=== PATIENT | female | born 1990 | race Caucasian/White ===

== ENCOUNTER → 2021-06-11 14:11 | Outpatient (BNVA) | payer BC, SELFPAY | PROVIDERS: Visit Provider Nurse Practitioner Women's Health | DX: N92.6 Irregular menstruation, unspecified (principal) | CPT/HCPCS: 81025; 84702 ==

== ENCOUNTER → 2021-06-29 13:54 | Outpatient (BNVA) | payer BC, SELFPAY | PROVIDERS: Visit Provider Nurse Practitioner Women's Health | DX: Z34.01 Encounter for supervision of normal first pregnancy, first trimester | CPT/HCPCS: 80307; 84315; 85027; 86592; 86762; 86803; 86850; 86900; 87086; 87340; 87806 ==

== ENCOUNTER → 2021-07-26 09:12 | Outpatient (BNVA) | payer BC, SELFPAY | PROVIDERS: Visit Provider Obstetrics & Gynecology | DX: Z34.01 Encounter for supervision of normal first pregnancy, first trimester | CPT/HCPCS: 84315; 84443; 87491; 87591; 87661; 88175 ==

== ENCOUNTER → 2021-11-18 09:35 | Outpatient (BNVA) | payer BC, SELFPAY | PROVIDERS: Visit Provider Obstetrics & Gynecology | DX: Z34.90 Encounter for supervision of normal pregnancy, unspecified, unspecified trimester (principal) | CPT/HCPCS: 82950; 84315; 85025; 87086 ==

== ENCOUNTER 2021-11-25 17:40 | Outpatient (CLI) | payer BC, SELFPAY ==
[2021-11-25] VITALS (13 sets, daily range): BP systolic 107–120; BP diastolic 55–69; PULSE 71–93; RESP 12–18; TEMP 36.6; O2SAT 100
[2021-11-25] MEDS: ondansetron 2 mg/ML SDV 2 mL 4 MG IVP (18:10)
[2021-11-25] MEDS: dextrose 5%-lactated ringers 1,000 ML 999 ML IV ×2 (18:13→18:14)
[2021-11-25] MEDS: meclizine 25 mg tablet PO (20:35)
--- NOTE | 2021-11-25 21:19 | PC.NURSE ---
Patient requests to use bathroom at this time. Assisted patient out of bed and she states she feels like the room is spinning. Patient is unsteady on her feet and assisted by RN to wheelchair. Patient's vitals taken and all WNL. Patient taken to bathroom via wheelchair and assisted to toilet. Called ER at [phone] to advise patient would be discharged and sent to ER for further evaluation. Advised of care provided in OB department. ER states to leave IV in place and send to ER.
== END 2021-11-25 21:33 | disposition home or self-care (01) ==
LOC: OPOB 17:45 → OBGYN 17:47
PROVIDERS: Visit Provider Obstetrics & Gynecology
DX: O21.9 Vomiting of pregnancy, unspecified (principal); Z3A.00 Weeks of gestation of pregnancy not specified; R42 Dizziness and giddiness
CPT/HCPCS: 59025; 96374; 99211; J2405; J8597

== ENCOUNTER 2021-11-25 21:38 | Emergency (ER) | payer BC, SELFPAY ==
[2021-11-25 21:41] VITALS: BP 125/71; PULSE 90; RESP 16; TEMP 36.6; O2SAT 99; BMI 34.4
--- NOTE | 2021-11-25 22:01 | ED_ITS ---
HPI - Dizziness General: Chief Complaint: Dizziness Stated Complaint: D/V 29 weeks preg Time Seen by Provider: 11/25/21 21:43 Source: patient Mode of arrival: wheelchair Limitations: no limitations History of Present Illness: HPI Narrative: Patient is a 31-year-old female at 29 weeks who presents to ED today after she was sent here following an evaluation at OB for concerns of dizziness, nausea, vomiting. Patient states while at OB she received 2 L of dextrose/LR, Zofran, and Meclizine but was still symptomatic so recommended coming to the ED. Patient tells me dizziness began when she awoke this morning and is worse with movement of her head. She is not having any visual changes. No headache. No focal neurologic deficits. No previous history of vertigo. She states has been uncomplicated. No chronic medical problems. MD elicited complaint: dizziness Onset (ago): hour(s) Timing: awoke with symptoms Severity: moderate Description: room spinning History of similar symptoms: No Exacerbating factors: movement/ambulation and keeping eyes open Relieving factors: remaining still and keeping eyes closed Associated symptoms: Reports no associated symptoms, nausea and vomiting; Denies chest pain, chills, headache(s), malaise, palpitations or syncope Associated neuro symptoms: Reports no associated symptoms; Deny confusion or numbness in extremities Stroke scale total: 0 Review of Systems Const: Denies: fever(s), chills, body aches, fatigue or malaise Eyes: Denies: change in vision, blurry vision, photophobia, eye discomfort, floaters or seeing flashes Card: Denies: chest pain, palpitations, syncope or pre-syncope Resp: Denies: dyspnea GI: Reports: nausea and vomiting; Denies: abdominal pain, diarrhea or change in bowel habits : Denies: flank pain, dysuria, hematuria, vaginal bleeding or vaginal discharge Musc: Denies: neck pain, back pain, extremity pain or joint pain Skin/Breast: Denies: rash Neuro: Reports: vertigo; Denies: headache(s), numbness in extremities, weakness in extremities, sensory changes, lack of coordination, frequent falls, confusion, behavioral changes, Slurred speech present, difficulty communicating thoughts or seizure-like activity Psych: Denies: anxiety PFSH ED PFSH: Medical History Irregular menses Migraine with aura No pertinent past medical history neg dx- dm,thyroid,htn,dvt/pe PCP: none Surgical History [place] teeth removed 2016 Family History Mother Hypertension Father Hypertension Grandmother Stroke paternal Grandfather Colon cancer maternal- age of dx- 70's Denies family history of Ovarian cancer Diabetes Hyperlipidemia Breast cancer Uterine cancer Thyroid disease Physical Exam Const: COMMON NORMALS: no acute distress, average body habitus, patient oriented x3, no limitations, healthy appearing, alert and well nourished GENERAL APPEARANCE: cooperative ORIENTATION/CONSCIOUSNESS: Yes awake, Yes oriented to person, Yes oriented to place and Yes oriented to time HENMT: COMMON NORMALS: normocephalic, atraumatic, hearing grossly normal b ilaterally, external ears normal, EAC's normal, TM's normal bilaterally, Normal external nose present, Normal nasal mucous membranes and turbinates present, moist oral mucous membranes and oropharynx normal HEAD & SCALP: normal to inspection, normocephalic and atraumatic FACE & SINUS: normal facial exam NOSE: Normal external nose present and Normal nasal mucous membranes and turbinates present EXTERNAL EAR: Yes external ears normal EXTERNAL AUDITORY CANAL: EAC's normal TYMPANIC MEMBRANE: TM's normal bilaterally MOUTH: Normal oral and palatal mucosa present, lip normal and tongue normal THROAT: posterior oropharynx normal Eye: COMMON NORMALS: Equal, round and reactive pupils present and EOMs intact bilaterally GENERAL EYE: appearance normal, both eyes and all related structures and normal light reflex VISUAL ACUITY: Yes acuity normal VISUAL FRIAS: No peripheral vision loss and No central vision loss PUPIL: Yes Equal, round and reactive pupils present DIRECT OPHTHALMOSCOPY: Yes normal light reflex OTHER: horizontal nystagmus Neck/C-Spine: COMMON NORMALS: full ROM, no lymphadenopathy, supple, no meningeal signs, no JVD, Thyroid normal and No carotid bruits GENERAL: Yes normal visual inspection THYROID: Thyroid normal Resp: COMMON NORMALS: normal respiratory effort and clear to auscultation bilaterally AUSCULTATION: clear to auscultation bilaterally Cardio: COMMON NORMALS: no JVD, regular rate and regular rhythm RATE: regular rate RHYTHM: regular rhythm GI: COMMON NORMALS: non-tender INSPECTION: Yes gravid abdomen : COMMON NORMALS: Yes no CVA tenderness BLADDER/KIDNEY EXAM: Yes no CVA tenderness Back/Pelvis: COMMON NORMALS: no CVA tenderness Extremity: COMMON NORMALS: normal to inspection and full ROM GENERAL: Yes normal exam except as noted Neuro: JASPREET COMA SCALE: document GCS findings [place] coma scale eye opening: Spontaneous Jaspreet coma scale verbal response: Orientated Jaspreet coma scale motor response: Obey commands Jaspreet coma scale total score: 15 COMMON NORMALS: patient oriented x3, CN's II-XII intact bilaterally, moves all extremities, no focal motor deficits, no sensory deficits noted and gait normal SENSORIUM/ORIENTATION: Yes alert, Yes oriented to person, Yes oriented to place and Yes oriented to time MENINGEAL SIGNS: Yes no meningeal signs SP EECH: speech normal GAIT: Yes Normal gait present MOTOR EXAM: 5/5 motor strength present throughout Skin: COMMON NORMALS: no rashes or lesions noted GENERAL SKIN EXAM: no rashes or lesions noted Course Vital Signs: Vital signs: Vital Signs Temperature 97.8 F 11/25/21 21:41 Pulse Rate 70 11/26/21 00:35 Respiratory Rate 16 11/26/21 00:35 Blood Pressure 124/63 11/26/21 00:35 Pulse Oximetry 96 11/26/21 00:35 MDM - Dizziness Medical Decision Making Patient was cleared by OB and recommended to come to the ED for further evalua tion. UA initially showing 4+ glucose, 2+ ketones, WBCs (specimen was also contaminated with 10-15 squamous cells). Her CMP showed a glucose of almost 350. POC glucose was 75. UA and BMP were repeated an hour or so later which showed a normal glucose of 91. UA is clear. Possible lab error vs timing of draw after receiving 2L of dextrose/LR fluids, line contamination? Patient just had a normal 1 hour glucose tolerance test a week ago. Patient's history and physical exam is consistent with peripheral vertigo, most likely BPPV. Spoke to Dr. Santos who also evaluated patient and agrees with plan for discharge home at this time. She felt like the diphenhydramine given here worked better than the meclizine therefore we will have her continue taking this at home as needed. We'll also prescribe her a prescription for Reglan she can take for the nausea and vomiting. Recommend she contact her PCP or OB as soon as possible for further follow-up if symptoms persist. She was given a handout on Gabbie maneuvers. Lab Data : 11/25/21 22:10 11/25/21 23:56 Laboratory Results WBC 15.5 10^3/uL (4.0-10.0) H 11/25/21 22:10 RBC 3.58 10^6/uL (4.1-5.3) L 11/25/21 22:10 Hgb 10.9 g/dL (11.5-15.3) L 11/25/21 22:10 Hct 31.2 % (37.0-47.0) L 11/25/21 22:10 MCV 87.2 fl (81-99) 11/25/21 22:10 MCH 30.4 pg (28.0-34.0) 11/25/21 22:10 MCHC 34.9 g/dL (30.0-36.0) 11/25/21 22:10 RDW 12.9 % (12.1-15.1) 11/25/21 22:10 Plt Count 194 10^3/cmm (130-400) 11/25/21 22:10 MPV 11.1 fL (7.4-10.4) H 11/25/21 22:10 Neut % (Auto) 82.7 % 11/25/21 22:10 Lymph % (Auto) 9.7 % 11/25/21 22:10 Carver % (Auto) 4.8 % 11/25/21 22:10 Eos % (Auto) 0.1 % 11/25/21 22:10 Baso % (Auto) 0.4 % 11/25/21 22:10 Neut # (Auto) 12.85 10^3/uL (1.8-7.7) H 11/25/21 22:10 Lymph # (Auto) 1.5 10^3/uL (0.8-4.8) 11/25/21 22:10 Carver # (Auto) 0.8 10^3/uL (0.2-0.9) 11/25/21 22:10 Eos # (Auto) 0.0 10^3/uL (0.0-0.8) 11/25/21 22:10 Baso # (Auto) 0.1 10^3/uL (0.0-0.1) 11/25/21 22:10 Nucleated RBC % (auto) 0 % 11/25/21 22:10 Nucleated RBCs # 0.0 /100WBC 11/25/21 22:10 Sodium 134 mmol/L (136-145) L 11/25/21 23:56 Potassium 4.0 mmol/L (3.5-5.1) 11/25/21 23:56 Chloride 101 mmol/L (98-107) 11/25/21 23:56 Carbon Dioxide 20 mmol/L (22-29) L 11/25/21 23:56 Anion Gap 17.0 (5-19) 11/25/21 23:56 BUN 7 mg/dL (6-20) 11/25/21 23:56 Creatinine 0.5 mg/dL (0.5-0.9) 11/25/21 23:56 GFR Calculation 145.9 mL/min (90-130) H 11/25/21 23:56 Glucose 91 mg/dL (65-115) 11/25/21 23:56 POC Glucose 75 mg/dL (70-110) 11/25/21 22:29 Calculated Osmolality 276 mOsm/kg (285-295) L 11/25/21 23:56 Calcium 9.0 mg/dL (8.5-10.5) 11/25/21 23:56 Total Bilirubin 0.2 mg/dL (0.15-1.2) 11/25/21 22:10 AST 16 U/L (0-32) 11/25/21 22:10 ALT 13 U/L (0-33) 11/25/21 22:10 Alkaline Phosphatase 91 IU/L (35-105) 11/25/21 22:10 Total Protein 5.8 g/dL (6.6-8.7) L 11/25/21 22:10 Albumin 3.3 g/dL (3.5-5.2) L 11/25/21 22:10 Globulin 2.5 g/dL (1.3-4.6) 11/25/21 22:10 Urine Color Yellow (Yellow) 11/25/21 23:58 Urine Appearance Clear (CLEAR) 11/25/21 23:58 Urine pH 6.5 (5-7) 11/25/21 23:58 Ur Specific Garrett 1.005 (1.005-1.030) 11/25/21 23:58 Urine Protein Neg (Negative) 11/25/21 23:58 Urine Glucose (UA) 1+ (Normal) H 11/25/21 23:58 Urine Ketones Negative (Negative) 11/25/21 23:58 Urine Blood Neg (Negative) 11/25/21 23:58 Urine Nitrate Negative (Negative) 11/25/21 23:58 Urine Bilirubin Neg (Negative) 11/25/21 23:58 Urine Urobilinogen Norm mg/dL (Negative) 11/25/21 23:58 Ur Leukocyte Esterase 1+ (Negative) H 11/25/21 23:58 Urine RBC 0-4 /hpf (0-2) H 11/25/21 21:10 Urine WBC 25-40 /hpf (0-5) H 11/25/21 21:10 Ur Squamous Epith Cells 10-15 /hpf (0-5) H 11/25/21 21:10 Amorphous Sediment Not Reportable 11/25/21 21:10 Urine Bacteria 1+ /hpf (NONE) H 11/25/21 21:10 Urine Mucus Trace /hpf 11/25/21 21:10 Discharge Plan Discharge Patient Disposition: Home Clinical Impression: Vertigo Condition: Stable Prescriptions: New Reglan 10 mg tablet 10 mg PO Q6H PRN (Reason: nausea and vomiting) Qty: 15 0RF No Action Gummies 400 mcg-35 mg- 25 mg-5 mg tablet,chewable 2 tab PO DAILY 0RF cetirizine [Zyrtec] 10 mg tablet 10 mg PO DAILY PRN (Reason: Allergy Symptoms) 0RF Discharge Orders: Discharge ED (Routine); Ordered 11/26/21 Ordered By: Maggie Brown Activity Restrictions/Additional Instructions: As we discussed you felt like the Benadryl/Diphenhydramine helped more than the Meclizine so we will have you continue this at home as needed. You may take 50 mg every 4-6 hours as needed for dizziness/vertigo. You may also use the prescription Reglan given to you today to help with nausea and vomiting. Please contact your primary care provider or OB provider tomorrow for follow-up. If offices are closed because of the weather please follow-up with them early next week. As we discussed please return to the emergency department for worsening dizziness, repetitive episodes of vomiting, or any other concerns you may have. I hope you begin to feel better soon. Coding Level of Care Code ED Senior Licensing Manager for Isac Fwrodger Exam Comprehensive
[2021-11-25] MEDS: diphenhydrAMINE 50 mg/mL SDV 1mL 25 MG IVP (22:09)
[2021-11-25] MEDS: metoclopramide 5 mg/mL SDV 2 mL IVP (22:10)
[2021-11-25 22:11] VITALS: BP 127/72; PULSE 80; RESP 15; O2SAT 96
[2021-11-25 22:17] LABS: Add Urine Culture? No; Add Urine Microscopic? YES; Bacteria Urine 1+ /hpf; Bilirubin Urine Neg (Negative); Blood Urine Neg (Negative); Glucose Urine UA 4+ (Normal); Ketones Urine 2+ (Negative); Leukocyte Esterase Urine Trace (Negative); Mucus Urine TRACE /hpf; Nitrate Urine Negative (Negative); Protein Urine Neg (Negative); RBC Urine 0-4 /hpf (0-2); Urine Appearance Clear (CLEAR); Urine Color Yellow (Yellow); Urobilinogen Urine Norm (Negative); WBC Urine 25-40 /hpf (0-5); pH Urine 5 (5-7)
[2021-11-25 22:28] LABS: Basophils # 0.1 10^3/uL (0.0-0.1); Basophils % 0.4 %; Eosinophils % 0.1 %; Hematocrit 31.2 % (37.0-47.0); Hemoglobin 10.9 g/dL (11.5-15.3); Lymphocytes # 1.5 10^3/uL (0.8-4.8); Lymphocytes % 9.7 %; Mean Corpuscular HGB Conc 34.9 g/dL (30.0-36.0); Mean Corpuscular Hemoglobin 30.4 pg (28.0-34.0); Mean Corpuscular Volume 87.2 fl (81-99); Mean Platelet Volume 11.1 fL (7.4-10.4); Monocytes # 0.8 10^3/uL (0.2-0.9); Monocytes % 4.8 %; Neutrophils # 12.85 10^3/uL (1.8-7.7); Neutrophils % 82.7 %; Nucleated Red Blood Cells % 0 %; Platelet Count 194 10^3/cmm (130-400); Red Blood Count 3.58 10^6/uL (4.1-5.3); Red Cell Distribution Width 12.9 % (12.1-15.1); White Blood Count 15.5 10^3/uL (4.0-10.0)
[2021-11-25] MEDS: LORazepam 2 mg/mL INJ 1 mL 0.5 MG IVP (22:40)
[2021-11-25 22:43] LABS: Glucose Point of Care 75 mg/dL (70-110)
[2021-11-25 22:49] LABS: Alanine Aminotransferase 13 U/L (0-33); Albumin Level 3.3 g/dL (3.5-5.2); Alkaline Phosphatase 91 IU/L (35-105); Anion Gap 17.8 (5-19); Aspartate Amino Transferase 16 U/L (0-32); Blood Urea Nitrogen 7 mg/dL (6-20); Calcium 8.5 mg/dL (8.5-10.5); Carbon Dioxide 18 mmol/L (22-29); Chloride 102 mmol/L (98-107); Globulin 2.5 g/dL (1.3-4.6); Glomerular Filtration Rate 188.7 mL/min (90-130); Glucose 349 mg/dL (65-115); Osmolality Calculated 290 mOsm/kg (285-295); Potassium 3.8 mmol/L (3.5-5.1); Sodium 134 mmol/L (136-145); Total Bilirubin 0.2 mg/dL (0.15-1.2); Total Protein 5.8 g/dL (6.6-8.7)
[2021-11-25 23:30] VITALS: BP 137/85; PULSE 104; O2SAT 97
[2021-11-26 00:06] LABS: Add Urine Microscopic? NO; Charge for UA Resulting for Rev
[2021-11-26 00:09] LABS: Bilirubin Urine Neg (Negative); Blood Urine Neg (Negative); Glucose Urine UA 1+ (Normal); Ketones Urine Negative (Negative); Leukocyte Esterase Urine 1+ (Negative); Nitrate Urine Negative (Negative); Protein Urine Neg (Negative); Specific Gravity, Urine 1.005 (1.005-1.030); Urine Appearance Clear (CLEAR); Urine Color Yellow (Yellow); Urobilinogen Urine Norm (Negative); pH Urine 6.5 (5-7)
[2021-11-26 00:13] LABS: Blood Urea Nitrogen 7 mg/dL (6-20); Carbon Dioxide 20 mmol/L (22-29); Chloride 101 mmol/L (98-107); Glomerular Filtration Rate 145.9 mL/min (90-130); Glucose 91 mg/dL (65-115); Osmolality Calculated 276 mOsm/kg (285-295); Sodium 134 mmol/L (136-145)
[2021-11-26 00:35] VITALS: BP 124/63; PULSE 70; RESP 16; O2SAT 96
[2021-11-27 03:59] LABS: Glucose Point of Care 84 mg/dL (70-110)
== END 2021-11-26 00:36 | disposition home or self-care (01) ==
PROVIDERS: Emergency Provider Physician Assistant
DX: R42 Dizziness and giddiness (principal)
CPT/HCPCS: 36416; 80048; 80053; 81001; 81003; 82962; 85025; 96374; 96375; 99283; J1200; J2060; J2765

== ENCOUNTER → 2021-12-16 11:04 | Outpatient (BNVA) | payer BC, SELFPAY | PROVIDERS: Visit Provider Obstetrics & Gynecology | DX: Z34.90 Encounter for supervision of normal pregnancy, unspecified, unspecified trimester (principal) | CPT/HCPCS: 84315; 87086 ==

== ENCOUNTER → 2021-12-30 16:09 | Outpatient (BNVA) | payer BC, SELFPAY | PROVIDERS: Visit Provider Obstetrics & Gynecology | DX: Z34.90 Encounter for supervision of normal pregnancy, unspecified, unspecified trimester (principal) | CPT/HCPCS: 84315; 87086 ==

== ENCOUNTER → 2022-01-10 16:22 | Outpatient (BNVA) | payer BC, SELFPAY | PROVIDERS: Visit Provider Obstetrics & Gynecology | DX: Z34.90 Encounter for supervision of normal pregnancy, unspecified, unspecified trimester (principal); R82.90 Unspecified abnormal findings in urine | CPT/HCPCS: 84315; 87081; 87086 ==

== ENCOUNTER → 2022-01-24 16:19 | Outpatient (BNVA) | payer BC, SELFPAY | PROVIDERS: PCP Obstetrics & Gynecology; Visit Provider Obstetrics & Gynecology | DX: Z34.90 Encounter for supervision of normal pregnancy, unspecified, unspecified trimester (principal) | CPT/HCPCS: 84315; 87086 ==

== ENCOUNTER → 2022-02-07 16:14 | Outpatient (BNVA) | payer BC, SELFPAY | PROVIDERS: PCP Obstetrics & Gynecology; Visit Provider Obstetrics & Gynecology | DX: Z34.90 Encounter for supervision of normal pregnancy, unspecified, unspecified trimester (principal) | CPT/HCPCS: 84315; 87086 ==

== ENCOUNTER 2022-02-10 09:37 | Inpatient (IN) | payer BC, SELFPAY ==
[2022-02-10] VITALS (59 sets, daily range): BP systolic 106–140; BP diastolic 54–89; PULSE 72–122; RESP 16–18; TEMP 35.7–36.7; O2SAT 86–100; BMI 40.8
[2022-02-10] MEDS: miSOPROStol 100 mcg tablet 25 MCG VAGINAL ×2 (09:44→13:38)
[2022-02-10 11:11] LABS: Basophils % 0.4 %; Eosinophils % 0.4 %; Hematocrit 35.7 % (37.0-47.0); Hemoglobin 11.4 g/dL (11.5-15.3); Lymphocytes # 1.5 10^3/uL (0.8-4.8); Lymphocytes % 14.6 %; Mean Corpuscular HGB Conc 31.9 g/dL (30.0-36.0); Mean Corpuscular Hemoglobin 29.5 pg (28.0-34.0); Mean Corpuscular Volume 92.5 fl (81-99); Mean Platelet Volume 12.2 fL (7.4-10.4); Monocytes # 0.7 10^3/uL (0.2-0.9); Monocytes % 6.8 %; Neutrophils # 7.96 10^3/uL (1.8-7.7); Neutrophils % 76.2 %; Nucleated Red Blood Cells % 0 %; Platelet Count 179 10^3/cmm (130-400); Red Blood Count 3.86 10^6/uL (4.1-5.3); Red Cell Distribution Width 14.4 % (12.1-15.1); White Blood Count 10.5 10^3/uL (4.0-10.0)
[2022-02-10] MEDS: dextrose 5%-lactated ringers 1,000 ML 125 ML IV (16:56)
[2022-02-10] MEDS: fentaNYL 50 mcg/mL INJ 2mL IVP ×2 (16:59→17:59)
[2022-02-10] MEDS: lactated ringers 1,000 ML 999 ML IV (17:59)
--- NOTE | 2022-02-10 19:10 | P.ANESASSM_ITS ---
Pre-Anesthetic Assessment Height/Weight: Height 1.78 m Weight 129.274 kg Temp Pulse Resp BP Pulse Ox 98.0 F 122 H 16 137/72 100 02/10/22 08:58 02/10/22 19:07 02/10/22 17:59 02/10/22 19:02 02/10/22 19:07 Preop Diagnosis: Labor pain CHAD Was Beta Gen taken within 24 hours: N/A Was Clonidine taken within 24 hours: N/A Social No alcohol and No tobacco Exam alert, oriented x 3, clear to auscultation bilaterally and regular rate & rhythm Airway Submandibular: within normal limits Cervical ROM: within normal limits Mallampati: Class II Dentition: full History/ROS No significant history except as noted and No significant complaints Pulmonary None reported CV/HEM None reported None reported Hepatic None reported GI None reported Metabolic None reported Musc/skel None reported Neuropsych None reported Anesthetic Plan ASA status: 2 Anesthesia: Regional (specify below) Other: CHAD Risk of > 500 ml blood loss (7ml/kg in children): No Medications/Allergies Home Medications Medication Instructions Recorded Confirmed Last Taken Type cetirizine 10 mg tablet (Zyrtec) 10 mg PO DAILY PRN 06/11/21 02/07/22 Unknown History PNV 153-FA 400 mcg-om3 35 mg-dha 2 tab PO DAILY tab 07/26/21 02/07/22 Unknown History 25 mg-epa 5 mg-fish oil chew tablet ( Gummies) levocetirizine 5 mg tablet (Xyzal) 5 mg PO DAILY 12/30/21 02/07/22 Unknown History Allergies Allergy/AdvReac Type Severity Reaction Status Date / Time No Known Allergies Allergy Verified 02/07/22 16:07 Current Medications Generic Name Dose Route Start Last Admin Trade Name Freq PRN Reason Stop Dose Admin Fentanyl 25 - 100 mcg 02/10/22 16:43 02/10/22 17:59 Fentanyl 50 Mcg/Ml Inj 2ml IVP 50 mcg Q1H PRN Administration SEVERE PAIN Dextrose/Lactated Ringer's 1,000 mls @ 125 mls/hr 02/10/22 09:00 02/10/22 16:56 Dextrose 5%-Lactated Ringers IV 125 mls/hr .Q8H LYNETTE Administration Lactated Ringer's 1,000 mls @ 999 mls/hr 02/10/22 17:45 02/10/22 17:59 Lactated Ringers IV 999 mls/hr .Q1H1M PRN Administration See label comments PFSH Anesthesia Medical History Irregular menses Migraine with aura No pertinent past medical history neg dx- dm,thyroid,htn,dvt/pe PCP: none Surgical History [place] teeth removed 2016 Family History Mother Hypertension Father Hypertension Grandmother Stroke paternal Grandfather Colon cancer maternal- age of dx- 70's Denies family history of Ovarian cancer Diabetes Hyperlipidemia Breast cancer Uterine cancer Thyroid disease Female Reproductive History : 1 Data Anesthesia : 02/10/22 08:40 Short CBC 02/10/22 Range/Units 08:40 WBC 10.5 H (4.0-10.0) 10^3/uL Hgb 11.4 L (11.5-15.3) g/dL Hct 35.7 L (37.0-47.0) % MCV 92.5 (81-99) fl Plt Count 179 (130-400) 10^3/cmm Neut % (Auto) 76.2 % Neut # (Auto) 7.96 H (1.8-7.7) 10^3/uL Cardiac Studies: No Data to Display
--- NOTE | 2022-02-10 19:12 | ANES.PROC ---
Anesthesia Procedures Procedure/Date: 02/10/22 Epidural: Time Out Performed: Yes Consent: from patient, risks and benefits reviewed and patient agrees to proceed Lumbar Level: L2-L3 Epidural position: sitting Epidural procedure: sterile prep of area, 1% lidocaine to numb the area, 18 g needle, neg for paresthesia, test dose given, 1.5% xylocaine 1:200k epi (5cc), 0.2% Ropivacaine bolus ml (5cc and Fentanyl 100mcg ), no systemic response, sterile dressing applied, L.U.D. no apparent complications and 0.2% Ropiavacaine @ mls/hr (13cc/hour)
--- NOTE | 2022-02-10 19:45 | PM.OPHPUD ---
Labor & Delivery H&P Update Date of Procedure: February 10, 2022 Date H&P Performed: 02/07/22 H&P update information: I have reviewed H&P completed within last 30 days, I have examined patient prior to procedure and No changes to prior documentation Changes to previous documentation: cervix is unchanged from office IUP@ 40 weeks 4 days Admission Diagnosis: Preop diagnosis: Labor pain Related Problem List Diagnoses (1) Supervision of normal :
[2022-02-11] VITALS (30 sets, daily range): BP systolic 109–197; BP diastolic 54–117; PULSE 70–108; RESP 16–18; TEMP 36.5–36.8; O2SAT 97
[2022-02-11] MEDS: oxytocin 30 UNIT/500 ML BAG 600 UNIT IV (00:30)
[2022-02-11] MEDS: lidocaine 2% INJ 20 mL INJECTION (00:45)
--- NOTE | 2022-02-11 00:49 | PM.DELIVERY ---
Delivery Note: Date of delivery: February 11, 2022 Pre-delivery diagnoses: IUP@ 40 weeks, 5 days Post-delivery diagnoses: same Procedure: Delivering Physician: Massiel Estimated blood loss (mL): 75 Findings: term male in the NARCISO presentation Pre-Delivery Course: The patient was admitted for induction for postdates . She received three doses of cytotec and began laboring on her own. She received an epidural for pain control. She had AROM at 7 cm dilation. there was thick meconium present upon ROM. She had complete cervical dilation and began pushing. Delivery: The patient had complete cervical dilation and began to push. The head delivered in the NARCISO position over an intact perineum under epidural anesthesia. The nose and mouth were bulb suctioned. The shoulders and body delivered atraumatically. The baby was placed onto the mother's abdomen. The cord was clamped and cut. Cord blood was obtained. The placenta delivered spontaneously. It was inspected and found to be intact. Inspection of the perineum revealed a second-degree perineal laceration which was repaired in the usual fashion Estimated blood loss 75 mL. Apgars on baby were 8 at 1 minute and 9 at 5 minutes. Weight of baby is 9 pounds 2 ounces. Mother and baby were stable post delivery. History History History 1 Term 0 Miscarriages/Ectopic Living Children Coding Level of Care Code Acute Motion Picture Scene Builder for Chg Nelson
[2022-02-11] MEDS: dextrose 5%-lactated ringers 1,000 ML 125 ML IV (02:42)
[2022-02-11] MEDS: benzocaine-menthol 78 gm Canister 1 SPRAY TOPICAL (04:19)
[2022-02-11] MEDS: lanolin oint 7 gm 1 APPLIC TOPICAL (04:19)
[2022-02-11] MEDS: docusate sodium 100 mg Capsule PO ×2 (08:38→17:02)
[2022-02-11] MEDS: prenatal vitamin Capsule 1 CAP PO (08:38)
[2022-02-11] MEDS: ibuprofen 800 mg tablet PO ×3 (08:38→21:23)
--- NOTE | 2022-02-11 08:48 | ANE.PACU2 ---
Inpatient post-anesthesia follow up: Airway intact: Yes Vital signs: Temperature 98.2 F Pulse Rate 83 Respiratory Rate 18 Blood Pressure 131/86 Pulse Oximetry 99 Oxygen Delivery Me thod Room Air Oxygen Flow Rate Fraction of Inspir ed Oxygen Hydration adequate: Yes Nausea and vomiting: No Pain level: 2 Mental status: Baseline
--- NOTE | 2022-02-11 11:15 | PC.NURSE ---
pt ambulated to OB9 without difficulty. remains up in room. oriented to room, call light, proud parent pack, and dietary ordering process.
[2022-02-11 13:59] LABS: Hematocrit 30.6 % (37.0-47.0); Hemoglobin 10.3 g/dL (11.5-15.3); Mean Corpuscular HGB Conc 33.7 g/dL (30.0-36.0); Mean Corpuscular Hemoglobin 30.2 pg (28.0-34.0); Mean Corpuscular Volume 89.7 fl (81-99); Platelet Count 177 10^3/cmm (130-400); Red Blood Count 3.41 10^6/uL (4.1-5.3); Red Cell Distribution Width 14.4 % (12.1-15.1); White Blood Count 15.1 10^3/uL (4.0-10.0)
[2022-02-12 05:13] VITALS: BP 136/77; PULSE 82; RESP 16; TEMP 36.9
--- NOTE | 2022-02-12 07:59 | P.DS_ITS ---
Discharge Providers Date of Admission: 02/10/22 09:37 Date of Discharge: February 12, 2022 Attending Provider at Admission: Carey Rankin MD Attending Provider at Discharge: Carey Rankin MD Primary Care Provider: Carey Rankin MD Diagnoses at Discharge Discharge Diagnosis (1) Supervision of normal : Status: Acute Qualifiers: Normal : normal first Trimester: first trimester Qualified Code(s): Z34.01 - Encounter for supervision of normal first , first trimester Reason for Visit Reason for Visit: induction Hospital Course Hospital Course The patient was admitted for induction at term. She had spontaneous delivery of a term male . She did well and was ready for discharge on day #1 Physical Exam Narrative: Doing well this morning. No concerns. Const: COMMON NORMALS: no acute distress, patient oriented x3, no limitations, healthy appearing, alert and well nourished GENERAL APPEARANCE: cooperative, comfortable, well kempt and well developed ORIENTATION/CONSCIOUSNESS: Yes awake, Yes oriented to person, Yes oriented to place and Yes oriented to time Resp: COMMON NORMALS: normal respiratory effort EFFORT & INSPECTION: Yes able to speak in complete sentences GI: COMMON NORMALS: Soft to palpation and non-tender PALPATION: Yes Soft to palpation Extremity: COMMON NORMALS: no calf tenderness Neuro: COMMON NORMALS: patient oriented x3 SENSORIUM/ORIENTATION: Yes alert, Yes oriented to person, Yes oriented to place and Yes oriented to time Psych: APPEARANCE: Yes well kempt Urinary Catheter Management: Yang Latex: Cath Placed During This Visit: yes, but has since been removed by the nurse Reason for Continuing Indwelling Catheter: Decision to DC Catheter Urinary Catheter Date of Insertion: 02/10/22 Urinary Catheter Time of Insertion: 20:10 Date Urinary Catheter Removed: 02/10/22 Time Urinary Catheter Discontinued: 23:26 Discharge Data Studies Completed and Pending Laboratory Results WBC 15.1 10^3/uL (4.0-10.0) H 02/11/22 13:20 RBC 3.41 10^6/uL (4.1-5.3) L 02/11/22 13:20 Hgb 10.3 g/dL (11.5-15.3) L 02/11/22 13:20 Hct 30.6 % (37.0-47.0) L 02/11/22 13:20 MCV 89.7 fl (81-99) 02/11/22 13:20 MCH 30.2 pg (28.0-34.0) 02/11/22 13:20 MCHC 33.7 g/dL (30.0-36.0) D 02/11/22 13:20 RDW 14.4 % (12.1-15.1) 02/11/22 13:20 Plt Count 177 10^3/cmm (130-400) 02/11/22 13:20 MPV 12.0 fL (7.4-10.4) H 02/11/22 13:20 Neut % (Auto) 76.2 % 02/10/22 08:40 Lymph % (Auto) 14.6 % 02/10/22 08:40 Sharp % (Auto) 6.8 % 02/10/22 08:40 Eos % (Auto) 0.4 % 02/10/22 08:40 Baso % (Auto) 0.4 % 02/10/22 08:40 Neut # (Auto) 7.96 10^3/uL (1.8-7.7) H 02/10/22 08:40 Lymph # (Auto) 1.5 10^3/uL (0.8-4.8) 02/10/22 08:40 Sharp # (Auto) 0.7 10^3/uL (0.2-0.9) 02/10/22 08:40 Eos # (Auto) 0.0 10^3/uL (0.0-0.8) 02/10/22 08:40 Baso # (Auto) 0.0 10^3/uL (0.0-0.1) 02/10/22 08:40 Nucleated RBC % (auto) 0 % 02/10/22 08:40 Nucleated RBCs # 0.0 /100WBC 02/10/22 08:40 Vitals Last Vital Signs Temp 98.5 F 02/12/22 05:13 Pulse 82 02/12/22 05:13 Resp 16 02/12/22 05:13 BP 136/77 02/12/22 05:13 Pulse Ox 97 02/11/22 21:24 Discharge Plan Discharge Patient Disposition: Home Condition: Stable Prescriptions: Continued Gummies 400 mcg-35 mg- 25 mg-5 mg tablet,chewable 2 tab PO DAILY 0RF levocetirizine [Xyzal] 5 mg tablet 5 mg PO DAILY 0RF cetirizine [Zyrtec] 10 mg tablet 10 mg PO DAILY PRN (Reason: Allergy Symptoms) 0RF Discharge Orders: Discharge Order (Routine); Ordered 02/12/22 Ordered By: Carey Rankin Patient Instructions: OB Discharge Report, OB Food/Drug Interaction Guide, OB Care at Home, Opioid Safety, OB Vaginal Deliveries - [facility] Discharge Attestations Time Spent in Discharge Care*: less than 30 min Quality Metrics Clinical Quality Measures [ No reported AMI, CVA or VTE this stay] Coding Level of Care Code Acute Chg FW DC note Diagnoses Supervision of normal Z34.01 Normal : normal first Trimester: first trimester
[2022-02-12] MEDS: docusate sodium 100 mg Capsule PO (09:20)
[2022-02-12] MEDS: ibuprofen 800 mg tablet PO (09:20)
[2022-02-12] MEDS: prenatal vitamin Capsule 1 CAP PO (09:20)
[2022-02-12 11:56] VITALS: BP 120/83; PULSE 75; RESP 17; TEMP 36.7
[2022-02-12 12:00] VITALS: BP 120/83; PULSE 75; RESP 17; TEMP 36.7
== END 2022-02-12 12:00 | disposition home or self-care (01) | DRG 807 ==
LOC: OPOB 09:37 → OBGYN 09:37
PROVIDERS: Admitting Provider Obstetrics & Gynecology; PCP Obstetrics & Gynecology; Visit Provider Obstetrics & Gynecology
DX: O48.0 Post-term pregnancy (principal); Z37.0 Single live birth; O70.1 Second degree perineal laceration during delivery; Z3A.40 40 weeks gestation of pregnancy
CPT/HCPCS: 36415; 51702; 59025; 59409; 85025; 85027; 96374; 96376; J2795; J3010

== ENCOUNTER → 2023-08-18 11:50 | Outpatient (BNVA) | payer OTHER, SELFPAY | PROVIDERS: PCP Obstetrics & Gynecology; Visit Provider Nurse Practitioner Women's Health | DX: N92.6 Irregular menstruation, unspecified (principal) | CPT/HCPCS: 83520; 84146; 84439; 84443 ==

== ENCOUNTER → 2023-08-28 14:45 | Outpatient (BNVA) | payer OTHER, SELFPAY | PROVIDERS: PCP Obstetrics & Gynecology; Visit Provider Nurse Practitioner Women's Health | DX: N92.6 Irregular menstruation, unspecified (principal) | CPT/HCPCS: 84144 ==

== ENCOUNTER → 2023-09-08 08:15 | Outpatient (BNVA) | payer OTHER, SELFPAY | PROVIDERS: PCP Obstetrics & Gynecology; Visit Provider Nurse Practitioner Women's Health | DX: N92.6 Irregular menstruation, unspecified (principal) | CPT/HCPCS: 82670; 83001 ==

== ENCOUNTER → 2023-09-13 13:20 | Outpatient (BNVA) | payer OTHER, SELFPAY | PROVIDERS: PCP Obstetrics & Gynecology; Visit Provider Nurse Practitioner Women's Health | DX: N92.6 Irregular menstruation, unspecified (principal) | CPT/HCPCS: 84702 ==

== ENCOUNTER → 2023-09-27 14:21 | Outpatient (BNVA) | payer OTHER, SELFPAY | PROVIDERS: PCP Obstetrics & Gynecology; Visit Provider Nurse Practitioner Women's Health | DX: N92.6 Irregular menstruation, unspecified (principal); N83.291 Other ovarian cyst, right side | CPT/HCPCS: 76830 ==

== ENCOUNTER → 2023-10-25 15:24 | Outpatient (BNVA) | payer OTHER, SELFPAY | PROVIDERS: PCP Obstetrics & Gynecology; Visit Provider Nurse Practitioner Women's Health | DX: N92.6 Irregular menstruation, unspecified (principal) | CPT/HCPCS: 84702 ==

== ENCOUNTER → 2023-11-24 10:30 | Outpatient (BNVA) | payer OTHER, SELFPAY | PROVIDERS: Visit Provider Obstetrics & Gynecology | DX: N92.6 Irregular menstruation, unspecified (principal) | CPT/HCPCS: 83036; 85025 ==

== ENCOUNTER 2023-12-09 09:18 | Outpatient (CLI) | payer OTHER, SELFPAY ==
[2023-12-09 10:35] LABS: Follicle Stimulating Hormone 7.6 mIU/mL; Thyroid Stimulating Hormone 2.25 uIU/mL (0.27-4.20)
== END 2023-12-09 09:19 | disposition home or self-care (01) ==
PROVIDERS: Visit Provider Obstetrics & Gynecology
DX: Z31.69 Encounter for other general counseling and advice on procreation (principal); N97.0 Female infertility associated with anovulation
CPT/HCPCS: 83001; 83520; 84443

== ENCOUNTER → 2023-12-27 16:04 | Outpatient (BNVA) | payer OTHER, SELFPAY | PROVIDERS: PCP Nurse Practitioner Family; Visit Provider Obstetrics & Gynecology | DX: N97.0 Female infertility associated with anovulation (principal); Z31.69 Encounter for other general counseling and advice on procreation | CPT/HCPCS: 82670; 84144 ==

== ENCOUNTER → 2024-01-18 16:04 | Outpatient (BNVA) | payer OTHER, SELFPAY | PROVIDERS: PCP Nurse Practitioner Family; Visit Provider Obstetrics & Gynecology | DX: N97.9 Female infertility, unspecified (principal) | CPT/HCPCS: 84146; 84443 ==

== ENCOUNTER → 2024-02-22 14:03 | Outpatient (BNVA) | payer OTHER, SELFPAY | PROVIDERS: PCP Nurse Practitioner Family; Visit Provider Obstetrics & Gynecology | DX: N92.6 Irregular menstruation, unspecified (principal) | CPT/HCPCS: 84144 ==